=== PATIENT | female | born 1955 | race Caucasian/White ===

== ENCOUNTER 2017-01-13 23:34 | Emergency (ER) | payer OTHER ==
[2017-01-13] MEDS ORDERED: ONDANSETRON 4 MG/2 ML VIAL IVPB ONE (23:42)
[2017-01-13] MEDS ORDERED: SODIUM CHLORIDE 1,000 ML IV ONE (23:42)
[2017-01-13 23:44] VITALS: PULSE 87; TEMP 98; BMI 20.3
--- NOTE | 2017-01-13 23:47 | PDOC ---
History of Present Illness - General Chief Complaint: Nausea/Vomiting Stated Complaint: VOMITING Time Seen by Provider: 01/13/17 23:40 History Source: Patient Exam Limitations: No Limitations - History of Present Illness Initial Comments: 01/13/17 23:47 This is a 61-year-old female who comes in complaining of vomiting times one day. Patient denies any fever, chills, diarrhea. Chest pain or shortness of breath. Patient is chronic cough she is else. Patient is otherwise healthy. Patient is complaining of some mild epigastric pain. PAST MEDICAL HISTORY: no significant history PAST SURGICAL HISTORY: no significant history FAMILY HISTORY: no pertinant history SOCIAL HISTORY: Pt lives with family and is employed. MEDICATIONS: reviewed ALLERGIES: As per nursing notes Review of Systems General: No fevers or chills, no weakness, no weight loss HEENT: No change in vision. No sore throat,. No ear pain CardioVascular: No chest pain or shortness of breath Respiratory:No cough, or wheezing. Gastrointestinal: + nausea, + vomitting, no diarrhea or constipation, No rectal bleeding Genitourinary: No dysuria, hematuria, or frequency Musculoskeletal: No joint or muscle pain or swelling Neurologic: No headache, vertigo, dizziness or loss of consciousness Psychiatric: nor depression Skin: No rashes or easy bruising Endocrine: no increased thirst or abnormal weight change Allergic: no skin or latex allergy All other systems reviewed and normal Exam: General: Well-nourished well-developed individual, no acute distress HEENT: Throat: Normal, tonsils normal, no erythema or exudate, mucous membranes are dry Neck: Supple, no meningeal signs, no lymphadenopathy Eyes::Pupils equal reactive and round, extraocular motion intact Chest: Nontender to palpation Cardiac: S1-S2 normal, regular rate and rhythm, no murmurs rubs or gallops Respiratory: Lungs clear to auscultation bilateral Abdomen: Soft, nondistended, normal bowel sounds, mildly tender to palpation epigastric no guarding or rebound Extremities: Warm, dry, no cyanosis, clubbing, or edema Skin: No rashes Neuro: Alert and oriented x3, nonfocal exam, grossly intact, normal gait Psych: Normal mood and affect 01/14/17 00:45 Chest x-ray no acute pathology. EKG normal sinus rhythm no acute ST-T wave changes 01/14/17 01:54 Patient has a very mildly elevated white count otherwise is no shift in the rest of her labs are unremarkable. Assessment and plan: This is a 61-year-old female with nausea vomiting and dehydration. Patient has been hydrated and feels better. Patient labs were Patient has a very mildly elevated white count otherwise is no left shift Patient's chemistries are unremarkable. 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 Patient discharged home will follow-up with her primary care doctor as needed Past History - Past Medical History Allergies/Adverse Reactions: Allergies Allergy/AdvReac Type Severity Reaction Status Date / Time amoxicillin [Amoxicillin] Allergy Verified 01/13/17 23:36 erythromycin base Allergy Verified 01/13/17 23:36 [Erythromycin Base] Sulfa (Sulfonamide Allergy Verified 01/13/17 23:36 Antibiotics) KENISHA Inhibitors AdvReac Intermediate throat Verified 01/13/17 23:36 closure other antibiotics Allergy Uncoded 05/05/13 14:45 Home Medications: Ambulatory Orders Ondansetron [Zofran Odt -] 4 mg SL TID #21 od.tablet 01/14/17 HTN: Yes - Psycho/Social/Smoking Cessation Hx Anxiety: No Suicidal Ideation: No Smoking History: Current every day smoker Have you smoked in the past 12 months: Yes Number of Cigarettes Smoked Daily: 20 'Breaking Loose' booklet given: 05/24/15 ED Treatment Course - LABORATORY CBC & Chemistry Diagram: 01/13/17 23:55 01/13/17 23:55 *DC/Admit/Observation/Transfer Diagnosis at time of Disposition: Dehydration, Vomiting - Discharge Dispostion Disposition: HOME Condition at time of disposition: Stable - Patient Instructions Printed Discharge Instructions: DI for Vomiting -- Adult Additional Instructions: You are now well-hydrated U do not need any more tonight If you have any further nausea you can take Zofran 1 tablet as often as every 6- 8 hours Clear liquids only for the next 6 hours.. After that if you have had no further vomiting you may have bananas, rice, applesauce, or toast. If no further vomiting for another 8 hours you may have regular food. If you vomit again then nothing to eat or drink for 2 hours. then start back with the clear liquids. Return to the emergency department immediately with ANY new, persistent or worsening symptoms. You MUST call and follow up with your doctor tomorrow if not better. Please make sure your doctor reviews the results of your emergency evaluation. .
[2017-01-13] MEDS ORDERED: ONDANSETRON 4 MG/2 ML VIAL ONE (23:52)
[2017-01-14] MEDS ORDERED: SODIUM CHLORIDE 1,000 ML IV ONE (00:32)
[2017-01-14 00:44] VITALS: BP 180/95
[2017-01-14 00:51] LABS: BASOPHIL 0.4 % (0-2.0); EOSINOPHIL 0.2 % (0-4.5); MCH 29.3 pg (25.7-33.7); MCHC 33.5 g/dl (32.0-36.0); MEAN CELL VOLUME 87.5 fl (80-96); MEAN PLT VOLUME 8.2 fl (7.5-11.1); NEUTROPHILS 80.4 % (42.8-82.8); PLATELET COUNT 353 K/MM3 (134-434); RDW 13.5 % (11.6-15.6); WHITE BLOOD COUNT 11.8 K/mm3 (4.0-10.0)
[2017-01-14 01:18] LABS: ALBUMIN 3.8 g/dl (3.4-5.0); ANION GAP 10 (8-16); BILIRUBIN,TOTAL 0.4 mg/dL (0.2-1.0); CALCIUM 9.6 mg/dL (8.5-10.1); CO2 32 mmol/L (21-32); CREATININE 0.6 mg/dL (0.55-1.02); GLUCOSE,RANDOM 136 mg/dL (74-106); SGOT/AST 9 U/L (15-37); SGPT/ALT 16 U/L (12-78); TOT PROT 7.2 g/dl (6.4-8.2)
[2017-01-14 01:19] LABS: ALK PHOS 80 U/L (45-117); TROPONIN I < 0.02 ng/ml (0.00-0.05)
[2017-01-14] MEDS ORDERED: METOCLOPRAMIDE HCL INJECTION 10 MG/2 ML VIAL IVPB ONE (01:26)
--- NOTE | 2017-01-14 15:28 | EKG ---
Test Reason : Blood Pressure : / mmHG Vent. Rate : 079 BPM Atrial Rate : 079 BPM P-R Int : 164 ms QRS Dur : 078 ms QT Int : 390 ms P-R-T Axes : 061 034 065 degrees QTc Int : 447 ms NORMAL SINUS RHYTHM CANNOT RULE OUT ANTERIOR INFARCT , AGE UNDETERMINED ABNORMAL ECG NO PREVIOUS ECGS AVAILABLE Confirmed by MARY HASSAN, CAITLYN ([id number]) on 01/14/2017 3:27:31 PM Referred By: ANTHONY SHEN Confirmed By:CAITLYN HERNANDEZ MD
== END 2017-01-14 02:03 | disposition home or self-care (01) ==
LOC: FER 23:34
PROC: 3E033GC Introduction of Other Therapeutic Substance into Peripheral Vein, Percutaneous Approach (ICD-10-PCS; principal; 2017-01-13)
PROC: 3E0337Z Introduction of Electrolytic and Water Balance Substance into Peripheral Vein, Percutaneous Approach (ICD-10-PCS; 2017-01-13)
DX: E86.0 Dehydration (principal); R11.10 Vomiting, unspecified; F17.210 Nicotine dependence, cigarettes, uncomplicated
CPT/HCPCS: 36415; 71010-TC; 80053; 82550; 83690; 84484; 85025; 93005; 99283-25

== ENCOUNTER 2021-10-19 21:39 | Emergency (ER) | payer OTHER, MEDICARE ==
[2021-10-19 21:51] VITALS: BMI 20.2
[2021-10-19 22:10] VITALS: TEMP 98.7
[2021-10-19] MEDS ORDERED: cloNIDine HCL 0.1 MG TABLET PO ONE (22:22)
[2021-10-19] MEDS ORDERED: cloNIDine HCL 0.1 MG TABLET ONE (22:33)
[2021-10-19 23:07] LABS: ALBUMIN 3.7 g/dl (3.4-5.0); BILIRUBIN,TOTAL 0.5 mg/dl (0.2-1); CALCIUM 9.5 mg/dl (8.5-10); CREATININE 0.6 mg/dl (0.55-1.3)
[2021-10-19] MEDS ORDERED: ALBUTEROL SO4 2.5/IPRATROPIUM 0.5 INH SOL 3 ML VIAL.NEB. NEB ONE ×2 (23:46→23:50)
[2021-10-19 23:55] VITALS: BP 158/95; PULSE 73
[2021-10-20] LABS: BASO % 0.3 % (0-2.0); EOS % 1.8 % (0-4.5); HEMATOCRIT 40.8 % (32.4-45.2); HEMOGLOBIN 13.5 GM/dL (10.7-15.3); LYMPH % 28.2 % (8-40); MCH 28.4 pg (25.7-33.7); MCHC 33.2 g/dl (32.0-36.0); MEAN CELL VOLUME 85.4 fl (80-96); MEAN PLT VOLUME 7.7 fl (7.5-11.1); MONO % 7.4 % (3.8-10.2); NEUT % 62.3 % (42.8-82.8); PLATELET COUNT 418 10^3/uL (134-434); RBC 4.77 M/mm3 (3.60-5.2); RDW 14.5 % (11.6-15.6); WHITE BLOOD COUNT 9.8 K/mm3 (4.0-10.0)
== END 2021-10-20 00:51 | disposition home or self-care (01) ==
LOC: FER 21:39
PROC: 3E0F7GC Introduction of Other Therapeutic Substance into Respiratory Tract, Via Natural or Artificial Opening (ICD-10-PCS; principal; 2021-10-19)
DX: J44.1 Chronic obstructive pulmonary disease with (acute) exacerbation (principal)
CPT/HCPCS: 36415; 71045-TC-FY; 80053; 82550; 83880; 84484; 85025; 93005; 99285-25; J0735

== ENCOUNTER 2022-10-12 05:24 | Emergency (ER) | payer OTHER, MEDICARE ==
[2022-10-12 05:50] VITALS: RESP 18; TEMP 97.9; BMI 16.9
[2022-10-12] MEDS ORDERED: SODIUM CHLORIDE 1,000 ML IV STA ×2 (06:43→07:04)
[2022-10-12] MEDS ORDERED: ALBUTEROL SO4 2.5/IPRATROPIUM 0.5 INH SOL 3 ML VIAL.NEB. NEB ONE ×2 (07:04→07:14)
[2022-10-12] MEDS ORDERED: ACETAMINOPHEN 500 MG TABLET (FP) PO ONE (08:18)
[2022-10-12] MEDS ORDERED: ACETAMINOPHEN 325 MG TABLET (FP) ONE (08:20)
[2022-10-12] MEDS ORDERED: ACETAMINOPHEN 325 MG TABLET (FP) PO ONE (08:22)
[2022-10-12 08:40] LABS: ALBUMIN 3.6 g/dl (3.4-5.0); BILIRUBIN,TOTAL 0.5 mg/dl (0.2-1); CREATININE 0.4 mg/dl (0.55-1.3); TOT PROT 6.7 g/dl (6.4-8.2)
[2022-10-12 09:21] LABS: HEMATOCRIT 39.4 % (32.4-45.2); HEMOGLOBIN 13.2 G/dL (10.7-15.3); MCH 30.3 pg (25.7-33.7); MCHC 33.4 g/dl (32.0-36.0); MEAN CELL VOLUME 90.7 fl (80-96); PLATELET COUNT 345.3 10^3/uL (134-434); RBC 4.34 10^6/uL (3.60-5.2); RDW 13.7 % (11.6-15.6); WHITE BLOOD COUNT 11.3 10^3/uL (4.0-10.8)
[2022-10-12 09:47] LABS: PLATELET ESTIMATE ADEQUATE
[2022-10-12 09:56] VITALS: BP 153/95; PULSE 80
== END 2022-10-12 10:08 | disposition home or self-care (01) ==
LOC: FER 05:24
PROC: 3E0F7GC Introduction of Other Therapeutic Substance into Respiratory Tract, Via Natural or Artificial Opening (ICD-10-PCS; principal; 2022-10-12)
PROC: 3E0337Z Introduction of Electrolytic and Water Balance Substance into Peripheral Vein, Percutaneous Approach (ICD-10-PCS; 2022-10-12)
DX: K59.00 Constipation, unspecified (principal)
CPT/HCPCS: 36415; 74176-TC; 80053; 81003; 81015; 85027; 99284-25